=== PATIENT | male | born 1955 | race Caucasian/White ===

== ENCOUNTER 2022-10-19 01:10 | Day surgery (SDC) | payer MEDICARE, OTHER, SELFPAY ==
[2022-10-08 08:46] VITALS: BMI 31.6
[2022-10-19 06:22] VITALS: BP 136/102; PULSE 98; RESP 20; TEMP 36.5; O2SAT 97
[2022-10-19 06:37] LABS: Glucose Point of Care 183 mg/dl (65-105)
[2022-10-19] MEDS: LACTATED RINGERS 1,000 ML 150 ML IV CONT (06:38)
--- NOTE | 2022-10-19 07:16 | P.PNAN_ITS ---
Anes - Initial Pre Proc Eval Procedure: Operation Date: 10/19/22 07:30 Proposed Procedures p Screening Colonoscopy - Oziel Carvalho MD Date/Time: 10/19/22 07:16 Surgeon: Oziel Carvalho MD Pre Op Diagnosis: neoplasm screening Patient Data Age: 67 Gender: M Height: 1.78 m Weight: 98.3 kg Last Vital Signs Temp 97.7 F 10/19/22 06:22 Pulse 98 10/19/22 06:22 Resp 20 10/19/22 06:22 BP 136/102 H 10/19/22 06:22 Pulse Ox 97 10/19/22 06:22 O2 Del Method Room Air 10/19/22 06:22 Allergies Allergy/AdvReac Type Severity Reaction Status Date / Time lisinopril AdvReac Intermediate cough Verified 10/19/22 06:22 Home Medications Medication Instructions Recorded Confirmed Type fluticasone 250 mcg-salmeterol 50 1 inhalation inhalation BID #60 ea 09/24/19 10/08/22 Rx mcg/dose blistr powdr for inhalation (Advair Diskus) aspirin 81 mg tablet,delayed 81 mg PO DAILY 12/04/19 10/08/22 History release atorvastatin 40 mg tablet 40 mg PO DAILY #90 tabs 11/09/21 10/08/22 Rx metformin 500 mg tablet,extended 500 mg PO TID #270 tabs 11/09/21 10/08/22 Rx release 24 hr Benicar 20 mg tablet (olmesartan) 20 mg PO DAILY #90 tabs 04/12/22 10/08/22 Rx semaglutide 0.25 mg or 0.5 mg (2 0.5 mg subcut WEEKLY 08/30/22 10/08/22 History mg/1.5 mL) subcutaneous pen injector (Ozempic) sodium,potassium,mag sulfates 17.5 See Rx Instructions PO .COMPLEX 09/02/22 10/08/22 Rx gram-3.13 gram-1.6 gram oral soln #354 mL (Suprep Bowel Prep Kit) Laboratory Tests 10/19/22 06:28 POC Capillary Glucose 183 mg/dl H mg/dl (65-105) Patient hx anesthesia problems: none Family hx anesthesia problems: none Results Review: All pre-operative results and documents have been reviewed as part of the pre- operative evaluation. [facility] Surgical History Surgical History H/O hernia repair Family History Family History Mother Diabetes mellitus Father Hypertension Social History Social History Smoking status: Never smoker Alcohol intake: never Substance use: never Substance use type: does not use Living arrangements: with family Spiritual care concerns: No Anes - Eval Final PreProcedure Day of Procedure 10/19/22 07:16 Patient weight: obese Heart: regular rate and rhythm Lungs: clear to auscultation Airway: Mallampati scale class II Neurological: alert and oriented Last oral intake: >/= 8 hours ASA classification: III Emergent: no Anesthetic plan: proceed Anesthesia type and monitoring: general GIVS and standard monitoring Results Review: All pre-operative results and documents have been reviewed as part of the pre- operative evaluation. Informed Consent: The patient's anesthetic plan and its attendant risks and benefits were discussed with the patient/family/POA. Questions were solicited and answers provided to the satisfaction of the patient/family/POA.
--- NOTE | 2022-10-19 07:19 | P.HP_ITS ---
History of Present Illness History of Present Illness Consent: Risks, benefits, and alternatives have been discussed and questions answered. Patient agrees to proceed with procedure. Chief complaint: neoplasm screening Narrative: Savage Estrella is a 67 year old male Presents for screening colonoscopy. Patient's current weight appetite bowel movements are normal. Patient denies abdominal pain. He has had no bleeding. Family history is noncontributory. Patient's last exam more than 10 years ago was unremarkable. Review of Systems Review of Systems: Review of systems noncontributory. [facility], [facility] Surgical History Surgical History H/O hernia repair Family History Family History Mother Diabetes mellitus Father Hypertension Social History Social History Smoking status: Never smoker Alcohol intake: never Substance use: never Substance use type: does not use Living arrangements: with family Spiritual care concerns: No Meds Home Medications and Allergies Home Medications Medication Instructions Recorded Confirmed Type fluticasone 250 mcg-salmeterol 50 1 inhalation inhalation BID #60 ea 09/24/19 10/08/22 Rx mcg/dose blistr powdr for inhalation (Advair Diskus) aspirin 81 mg tablet,delayed 81 mg PO DAILY 12/04/19 10/08/22 History release atorvastatin 40 mg tablet 40 mg PO DAILY #90 tabs 11/09/21 10/08/22 Rx metformin 500 mg tablet,extended 500 mg PO TID #270 tabs 11/09/21 10/08/22 Rx release 24 hr Benicar 20 mg tablet (olmesartan) 20 mg PO DAILY #90 tabs 04/12/22 10/08/22 Rx semaglutide 0.25 mg or 0.5 mg (2 0.5 mg subcut WEEKLY 08/30/22 10/08/22 History mg/1.5 mL) subcutaneous pen injector (Ozempic) sodium,potassium,mag sulfates 17.5 See Rx Instructions PO .COMPLEX 09/02/22 10/08/22 Rx gram-3.13 gram-1.6 gram oral soln #354 mL (Suprep Bowel Prep Kit) Allergies Allergy/AdvReac Type Severity Reaction Status Date / Time lisinopril AdvReac Intermediate cough Verified 10/19/22 06:22 Vital Signs Vital Signs - 24 hr 10/19/22 06:22 Temperature 97.7 F Pulse Rate 98 Respiratory Rate 20 Blood Pressure 136/102 H Pulse Oximetry 97 Oxygen Delivery Room Air Exam Narrative: Physical exam reveals patient to be alert. Vital signs stable. HEENT exam is unremarkable. Patient is anicteric. Lungs are clear to auscultation and percussion. Heart is without murmur or extra sounds. Abdomen bowel sounds present soft nontender with no organomegaly. Digital external rectal exam is normal. Assessment and Plan Assessment and plan (1) Encounter for screening colonoscopy: Code(s): Z12.11 - Encounter for screening for malignant neoplasm of colon Status: Acute Assessment and Plan: Patient presents today for screening colonoscopy. He appears to be at average risk for colon polyps.
[2022-10-19 07:47] VITALS: BP 118/55; PULSE 89; RESP 20; O2SAT 98
[2022-10-19 07:57] VITALS: BP 103/77; PULSE 77; RESP 18; O2SAT 98
[2022-10-19 08:07] VITALS: BP 124/68; PULSE 70; RESP 20; O2SAT 98
== END 2022-10-19 08:14 | disposition home or self-care (01) ==
PROVIDERS: PCP Family Medicine; Visit Provider Internal Medicine Gastroenterology
PROC: 0DJD8ZZ Inspection of Lower Intestinal Tract, Via Natural or Artificial Opening Endoscopic (ICD-10-PCS; CPT 45378; principal; 2022-10-19 07:30)
DX: Z12.11 Encounter for screening for malignant neoplasm of colon (principal); K63.5 Polyp of colon; K64.8 Other hemorrhoids; Z79.84 Long term (current) use of oral hypoglycemic drugs; Z79.82 Long term (current) use of aspirin; Z79.899 Other long term (current) drug therapy; E66.9 Obesity, unspecified; Z68.31 Body mass index [BMI] 31.0-31.9, adult
CPT/HCPCS: 45385; 82948; 88305; J2704; J7120